=== PATIENT | male | born 1965 | race American Indian/Alaskan Native ===

== ENCOUNTER 2017-12-13 07:51 | Inpatient (IN) | payer OTHER ==
[2017-11-28 10:39] VITALS: BMI 33.6
[2017-12-13 09:10] LABS: BLOOD UREA NITROGEN 19 mg/dl (9-20); CALCIUM 9.1 mg/dL (8.4-10.2); GFR AFRICAN-AMERICAN > 60; GFR NON-AFRICAN AMERICAN > 60
[2017-12-13] MEDS ORDERED: Rocuronium 10 mg/ml (5 ml) ONE ×2 (09:14→11:14)
[2017-12-13] MEDS ORDERED: Propofol 10 mg/ml Inj (20 ML) ONE (09:14)
[2017-12-13] MEDS ORDERED: Succinylcholine 200 mg/10 ml Inj IV ONE (09:15)
[2017-12-13] MEDS ORDERED: Lidocaine 4% (Laryng-O-Jet) Kit MM ONE (09:15)
[2017-12-13] MEDS ORDERED: Phenylephrine 10 mg/ml Inj ONE (09:15)
[2017-12-13] MEDS ORDERED: Bupivacaine 0.5% Inj(30mL) ONE (09:21)
[2017-12-13] MEDS ORDERED: Neostigmine 1:1000 (1 mg/ml) Inj ONE (09:23)
[2017-12-13 09:28] LABS: PARTIAL THROMBOPLASTIN TIME 31.7 Seconds (25.6-37.1)
[2017-12-13] MEDS ORDERED: Lactated Ringer's 1,000 ML IV ONE ×2 (09:46→15:40)
[2017-12-13] MEDS ORDERED: Midazolam 2 MG/2 ML VIAL ONE (09:54)
[2017-12-13] MEDS ORDERED: Ketamine 50 mg/ml Inj (10 ml) ONE (10:11)
--- NOTE | 2017-12-13 10:13 | RAD ---
HISTORY: preop COMPARISON: No prior. TECHNIQUE: Chest PA and lateral FINDINGS: LUNGS: No active pulmonary disease. PLEURA: No significant pleural effusion identified. No pneumothorax apparent. CARDIOVASCULAR: Normal. OSSEOUS STRUCTURES: Mild degenerative changes. VISUALIZED UPPER ABDOMEN: Normal. OTHER FINDINGS: None. IMPRESSION: No active disease.
[2017-12-13] MEDS ORDERED: Dexamethasone 4 mg/1 ml ONE (10:17)
[2017-12-13 10:29] LABS: BASO % 0.5 % (0.0-2.0); EOS # 0.2 K/uL (0.0-0.7); EOS % 1.9 % (0.0-4.0); HEMOGLOBIN 16.1 g/dL (12.0-18.0); LYMPH # 2.4 K/uL (1.0-4.3); LYMPH % 29.3 % (20.0-40.0); MEAN CELL VOLUME 83.7 fl (80.0-94.0); MEAN CORPUSCULAR HEMOGLOBIN 29.7 pg (27.0-31.0); MEAN CORPUSCULAR HGB CONC 35.5 g/dL (33.0-37.0); MEAN PLATELET VOLUME 9.8 fl (7.2-11.7); MONO # 0.6 K/uL (0.0-0.8); MONO % 6.9 % (0.0-10.0); NEUT % 61.4 % (50.0-75.0); NRBC % 0.6 % (0.0-0.0); RBC 5.41 Mil/uL (4.40-5.90); RED CELL DISTRIBUTION WIDTH 14.1 % (11.5-14.5); WHITE BLOOD COUNT 8.1 K/uL (4.8-10.8)
[2017-12-13] MEDS ORDERED: Morphine 1 mg/ml preservative-free Inj(Duramorph) ONE (10:54)
[2017-12-13] MEDS ORDERED: Bupivacaine 0.5% 50 ML IJ ONE (11:05)
[2017-12-13] MEDS ORDERED: EPINEPHrine 1 mg/ml (1:1000) Inj IV ONE (11:05)
[2017-12-13] MEDS ORDERED: Sodium Chloride 0.9% Inj (10mL) IV ONE (11:05)
[2017-12-13] MEDS ORDERED: Morphine 1 mg/ml preservative-free Inj(Duramorph) IV ONE (11:05)
[2017-12-13] MEDS ORDERED: ePHEDrine 50 mg/ml Inj ONE (11:22)
[2017-12-13] MEDS ORDERED: Lactated Ringer's 500 ML IV ONE ×2 (12:40→13:05)
--- NOTE | 2017-12-13 12:58 | CARD ---
APPROVED REPORT EKG Measurement Heart [id number] <Conclusion> Normal sinus rhythm Normal ECG
--- NOTE | 2017-12-13 13:10 | PCM.SURG1 ---
Surgeon's Initial Post Op Note - Surgeon's Notes Surgeon: Sheri Stubbs MD Ductfixing Plumber: Mitch Abrams PA-C, Bridget Mandel Type of Anesthesia: General Endo Pre-Operative Diagnosis: Left Knee Severe Osteoarthritis Operative Findings: see op report Post-Operative Diagnosis: same as pre-op dx Operation Performed: L TKR Specimen/Specimens Removed: Left knee bone and soft tissue Estimated Blood Loss: EBL {In ML}: 75 Date of Surgery/Procedure: 12/13/17 Time of Surgery/Procedure: 11:30
[2017-12-13] MEDS: HYDROmorphone 0.5 mg/0.5 ml ISec IVP PRN ×3 (13:35→14:05)
--- NOTE | 2017-12-13 14:30 | RAD ---
PROCEDURE: Left Knee Radiographs. HISTORY: Pain. COMPARISON: None. FINDINGS: The patient is status post total left knee arthroplasty with prosthetic components seen in good alignment. A small amount expected air and fluid is seen in the suprapatellar bursa. IMPRESSION: Status post total left knee arthroplasty.
--- NOTE | 2017-12-13 16:18 | CP.PCM.HP ---
History of Present Illness - History of Present Illness History of Present Illness: 52 y/o M with PMhx of chronic knee pain, cervical herniated disc and obesity presented to ED c/o intractable L/knee pain for the past months, with severe difficulty walking. Denies LE paresthesias. Patient also c/o hx of cervical disc herniation with chronic radicular pain to R/shoulder and arm with paresthesias to R/UE. Denies vomiting, nausea, changes in urination or stools, fever, headache. Present on Admission - Present on Admission Any Indicators Present on Admission: No Past Patient History - Past Medical History & Family History Past Medical History?: No - Past Social History Smoking Status: Never Smoked - CARDIAC Hx Cardiac Disorders: No - PULMONARY Hx Respiratory Disorders: No - NEUROLOGICAL Hx Neurological Disorder: No - HEENT Hx HEENT Problems: No - RENAL Hx Chronic Kidney Disease: No - ENDOCRINE/METABOLIC Hx Endocrine Disorders: No - HEMATOLOGICAL/ONCOLOGICAL Hx Blood Disorders: No Hx Blood Transfusions: No - INTEGUMENTARY Hx Dermatological Problems: No - MUSCULOSKELETAL/RHEUMATOLOGICAL Hx Musculoskeletal Disorders: Yes Hx Arthritis: Yes (knees) Hx Falls: No Hx Herniated Disk: Yes (C5, C6) Other/Comment: left knee - GASTROINTESTINAL Hx Gastrointestinal Disorders: Yes Hx Gastritis: Yes Other/Comment: HIATAL HERNIA - GENITOURINARY/GYNECOLOGICAL Hx Genitourinary Disorders: No Hx Prostate Problems: Yes (ENLARGE) - PSYCHIATRIC Hx Psychophysiologic Disorder: No Hx Emotional Abuse: No Hx Physical Abuse: No - SURGICAL HISTORY Hx Surgeries: Yes Hx Orthopedic Surgery: Yes (rotator cuff left shoulder,bicep repair) - ANESTHESIA Hx Anesthesia: Yes Hx Anesthesia Reactions: No Hx Malignant Hyperthermia: No Has any member of the family had a problem w/ anesthesia?: No Meds Allergies/Adverse Reactions: Allergies Allergy/AdvReac Type Severity Reaction Status Date / Time No Known Allergies Allergy Verified 12/13/17 08:11 Physical Exam - Constitutional Appears: Non-toxic, No Acute Distress - Eye Exam Eye Exam: EOMI, PERRL - ENT Exam ENT Exam: Mucous Membranes Moist - Respiratory Exam Respiratory Exam: Clear to Auscultation Bilateral, NORMAL BREATHING PATTERN. absent: Rales - Cardiovascular Exam Cardiovascular Exam: REGULAR RHYTHM, +S1, +S2. absent: Gallop - GI/Abdominal Exam GI & Abdominal Exam: Normal Bowel Sounds, Soft. absent: Guarding, Rebound, Tenderness - Extremities Exam Extremities exam: Positive for: tenderness (L/Knee. Limited ROM due to pain). Negative for: calf tenderness - Neurological Exam Neurological exam: Alert, Oriented x3 - Psychiatric Exam Psychiatric exam: Normal Affect, Normal Mood - Skin Skin Exam: Normal Color, Warm Results - Vital Signs Recent Vital Signs: Last Vital Signs Temp 98.9 F 12/13/17 15:50 Pulse 84 12/13/17 15:50 Resp 20 12/13/17 15:50 BP 112/75 12/13/17 15:50 Pulse Ox 98 12/13/17 15:50 - Labs Result Diagrams: 12/14/17 05:15 12/13/17 08:35 Labs: Laboratory Results - last 24 hr 12/13/17 12/13/17 12/13/17 08:35 08:35 08:35 WBC 8.1 RBC 5.41 Hgb 16.1 Hct 45.3 MCV 83.7 MCH 29.7 MCHC 35.5 RDW 14.1 Plt Count 194 MPV 9.8 Neut % (Auto) 61.4 Lymph % (Auto) 29.3 [place] % (Auto) 6.9 Eos % (Auto) 1.9 Baso % (Auto) 0.5 Neut # (Auto) 5.0 Lymph # (Auto) 2.4 [place] # (Auto) 0.6 Eos # (Auto) 0.2 Baso # (Auto) 0.0 PT 11.0 INR 1.0 APTT 31.7 Sodium 143 Potassium 4.1 Chloride 101 Carbon Dioxide 27 Anion Gap 19 BUN 19 Creatinine 1.0 Est GFR ( Amer) > 60 Est GFR (Non-Af Amer) > 60 Random Glucose 101 Calcium 9.1 Assessment & Plan - Assessment and Plan (Free Text) Assessment: Chronic intractable knee pain Failed medical treatment functional decline due to pain Ortho consulted Supportive measures
[2017-12-13] MEDS: oxyCODONE 10 mg ER Tab (oxyCONTIN) PO SCH (20:58)
--- NOTE | 2017-12-13 22:15 | OP ---
PROCEDURE DATE: 12/13/2017 ATTENDING SURGEON: Sheri Stubbs MD MARKETING DEVELOPMENT MANAGER: Mitch Abrams PA-C PREOPERATIVE DIAGNOSIS: :Left knee arthritis. POSTOPERATIVE DIAGNOSIS: Left knee arthritis. PROCEDURE: Left total knee replacement. IMPLANTS SIZE: [employer] 3.5 femur, 3.5 tibial baseplate, 15 mm poly, and 35 mm patella. ANESTHESIA TYPE: General. ESTIMATED BLOOD LOSS: 50 mL. COMPLICATIONS: None. HISTORY: The patient with prolonged history of left knee pain progressively getting worse despite extensive conservative management, which included activity modification, injections, anti-inflammatory modification and physical therapy. X-rays had revealed advanced arthritis. Patient was indicated for total knee replacement due to continued pain and limited mobility. I had a detailed discussion with the patient in the office explaining the nature of the surgery, alternatives of surgery, risks and benefits, rehabilitation protocol and surgical markings. Risks of surgery include but not limited to continued pain, lack of motion, infection, vascular injury, DVT/PE, nerve injury including peroneal nerve dysfunction, reflex sympathetic dystrophy, compartment syndrome, unforeseen medical and/or anesthesia complications, limb loss, and even . The patient expressed an understanding of the risks and possible benefits of the procedure, and is also aware of the alternatives to surgery. PROCEDURE: On the day of the surgery, the patient was admitted to pre-operative holding area. A laterality sheet was completed confirming the correct operative site. The correct surgical knee was marked in the holding area and informed consent was signed from the patient. Once again, I reviewed the risks and benefits of the surgery with the patient in detail. These risks include but are not limited to continued pain, lack of motion, infection, vascular injury, DVT/PE, nerve injury including peroneal nerve dysfunction, reflex sympathetic dystrophy, symptomatic hardware, need for further procedure and surgeries, instability, iatrogenic fractures, compartment syndrome, unforeseen medical and/or anesthesia complications, limb loss, and even . The patient expressed an understanding of the risks and possible benefits of the procedure, also aware of the alternatives to surgery and signed the informed consent. The patient was transported to the operating room and placed in the supine position, general anesthesia was obtained. A padded tourniquet was applied to patient's operative thigh and appropriate prophylactic antibiotics were given. The operative leg was draped and prepped in standard sterile manner. Timeout was completed, confirming patient's left knee to be the correct operative site. Using an Esmarch, the extremity was exsanguinated and tourniquet was inflated to 350 mmHg. The surgical incision markings were made using patella border, tibial tubercle, patella and quadriceps tendon. Using a 10 blade, a midline incision was made. Skin dissection was taken until the prepatellar fascia was identified and the corners of the patellar tendon were marked for proper closure at the end of the procedure. Using a fresh 10 blade, a medial parapatellar arthrotomy was performed. The knee was exposed in the standard manner. The deep MCL was elevated for exposure, medial and lateral menisci were removed, ACL and PCL were also transected. The tibia was subluxed anteriorly. Planned tibial cut was made with power saw, using extra-medullary guide, perpendicular to mechanical axis of the tibia. After the cut was made, the alignment was also checked and was found to be appropriate. Tibial cut surface was measured with trial base plate and it was noted that 3.5 tibial baseplate was provide sufficient coverage without overhang. Tibial component was externally rotated and marked. Next, the knee was placed into 90 degrees of flexion. A drill hole was made within the femoral notch anterior to PCL insertion for placement of intramedullary femoral stephanie. Intramedullary femoral stephanie was inserted within the femoral canal and planned distal femoral cut was made. After the cut, knee was brought into full extension. Spacer blocks were used to check the extension balancing both in full extension and 30 degrees of flexion. It was found that 15 mm trial spacer block allowed full extension with symmetric varus and valgus balancing. Next we proceed with Patella resurfacing. Patella width was found to 28 mm. Using the free-hand technique the arthritic patella surface was resected. Patella was sized using the guide and it was noted that 35 mm Patella dome button would be appropriate for the patient. Next the size of femoral component was determined using the posterior referencing guide. It was noted that a 3.5 femur would be appropriate for this patient without causing any significant notching. A 4 x 1 cutting block was placed and flexion gap balancing was checked. The flexion gap was found to be symmetric to the extension gap. Anterior and posterior condyle, anterior and posterior chamfer cuts were made. Next, appropriate size box cut for femoral component was prepared using the guide. The femoral trial component was impacted onto the distal femur. Appropriate size tibial trial component was also placed on the cut surface of the tibia. Using the drill and punch, keel for tibial implant was prepared. Trial tibial tray was secured onto the tibia using pins. Different size trial polyethylene inserts were secured on to the trial tibial tray to critically assess the following parameters: Full range of motion, extension and flexion gap balancing, mid-flexion stability, anterior and posterior drawer, and patellar tracking. All parameter were found to be satisfactory with 15 mm polyethylene insert. All the trial components were removed. Implants were opened on the back table. Cement was mixed and we proceed with cement fixation of the implants. Tibial tray, femoral component and patellar dome button were secured with cement. Polyethylene insert was secured onto the tibial tray using locking mechanism. The knee was reduced and brought into full extension. Cement was allowed to harden until final component fixation. Knee was taken through the final range of motion for stability testing, and found to be satisfactory. A 60 mL of custom cocktail mixture was injected into posterior capsule, MCL, LCL, quadriceps tendon, and patellar tendon. Wound was copiously irrigated with sterile antibiotic solution using pulse lavage. Arthrotomy was closed using heavy suture and wound was closed in standard manner. Patient was extubated, transferred to stretcher and taken to the recovery room. Post-operative instructions were provided, physical therapy consult was requested along with DVT prophylaxis and appropriate pain medications. During this procedure, I was assisted by Mitch Abrams, who assisted in positioning the patient on the operating room table as well as transferring the patient from the operating room table to the recovery room stretcher. In addition, Mitch Abrams assisted me during the actual operative procedure by positioning, protecting critical neurovascular structures, exposure of the joint, and proper positioning of the implants. The presence of Mitch Abrams as my operative certified surgical assistant was medically necessary to ensure the utmost safety of the patient in the pre, intra-, and post-operative periods. Sheri Stubbs MD [facility]
[2017-12-13] MEDS: Lactated Ringer's 1,000 ML IV SCH (23:31)
[2017-12-14] MEDS: Lactated Ringer's 1,000 ML IV SCH (03:31)
[2017-12-14 06:49] LABS: BASO % 0.2 % (0.0-2.0); EOS % 0.1 % (0.0-4.0); HEMOGLOBIN 13.4 g/dL (12.0-18.0); LYMPH # 2.2 K/uL (1.0-4.3); MEAN CELL VOLUME 83.6 fl (80.0-94.0); MEAN CORPUSCULAR HEMOGLOBIN 29.4 pg (27.0-31.0); MEAN CORPUSCULAR HGB CONC 35.2 g/dL (33.0-37.0); MEAN PLATELET VOLUME 9.9 fl (7.2-11.7); MONO # 1.2 K/uL (0.0-0.8); MONO % 8.2 % (0.0-10.0); NEUT # 11.1 K/uL (1.8-7.0); NEUT % 76.5 % (50.0-75.0); NRBC % 0.3 % (0.0-0.0); RBC 4.55 Mil/uL (4.40-5.90); WHITE BLOOD COUNT 14.6 K/uL (4.8-10.8)
[2017-12-14 07:41] VITALS: RESP 20
[2017-12-14] MEDS: oxyCODONE 10 mg ER Tab (oxyCONTIN) PO SCH ×2 (08:25→20:42)
--- NOTE | 2017-12-14 09:01 | CP.PCM.PN ---
Subjective - Date & Time of Evaluation Date of Evaluation: 12/14/17 Time of Evaluation: 08:15 - Subjective Subjective: 52 yo M s/p LTKR POD#1 Pt seen and examined at bedside, comfortable in bed Pt c/o mild left knee pain, well controlled with pain meds Pt denies SOB, chest pain, N/V/D, numbness/tingling LLE Objective - Vital Signs/Intake and Output Vital Signs (last 24 hours): Temp Pulse Resp BP Pulse Ox 98.4 F 71 20 113/73 96 12/14/17 07:40 12/14/17 07:40 12/14/17 07:40 12/14/17 07:40 12/14/17 07:40 - Medications Medications: Current Medications Acetaminophen (Tylenol 325mg Tab) 325 mg PO Q4 PRN PRN Reason: pain1-3 Aspirin (Aspirin) 325 mg PO BID [facility] Last Admin: 12/14/17 08:24 Dose: 325 mg Celecoxib (Celebrex) 200 mg PO Q12 [facility] Last Admin: 12/14/17 08:25 Dose: 200 mg Docusate Sodium (Colace) 100 mg PO TID [facility] Last Admin: 12/14/17 08:25 Dose: 100 mg Home Med (Alfuzosin Hcl [Uroxatral]) 10 mg PO DAILY [facility] Acetaminophen (Ofirmev) 100 mls @ 400 mls/hr IVPB Q6H [facility] PRN Reason: Protocol Stop: 12/14/17 10:16 Last Admin: 12/14/17 03:31 Dose: 400 mls/hr Lactated Ringer's (Lactated Ringer's) 1,000 mls @ 100 mls/hr IV .Q10H [facility] Last Admin: 12/14/17 03:31 Dose: 100 mls/hr Ketorolac Tromethamine (Toradol) 15 mg IM Q8 [facility] Stop: 12/15/17 23:59 Last Admin: 12/14/17 08:28 Dose: 15 mg Meclizine HCl (Antivert) 25 mg PO DAILY [facility] Last Admin: 12/14/17 08:24 Dose: 25 mg Ondansetron HCl (Zofran Inj) 4 mg IVP Q4 PRN PRN Reason: Nausea/Vomiting Last Admin: 12/13/17 22:19 Dose: 4 mg Oxycodone HCl (Oxycontin Extended Release Tab) 10 mg PO Q12 [facility] Stop: 12/16/17 21:01 Last Admin: 12/14/17 08:25 Dose: 10 mg Oxycodone/Acetaminophen (Percocet 5/325 Mg Tab) 1 tab PO Q4 PRN PRN Reason: pain4-6 Stop: 12/16/17 13:15 Pantoprazole Sodium (Protonix Inj) 40 mg IVP DAILY [facility] Last Admin: 12/14/17 08:26 Dose: 40 mg - Labs Labs: 12/14/17 05:15 12/13/17 08:35 PT 11.0 Seconds (9.8-13.1) 12/13/17 08:35 INR 1.0 (0.9-1.2) 12/13/17 08:35 APTT 31.7 Seconds (25.6-37.1) 12/13/17 08:35 - Constitutional Appears: Well, No Acute Distress - Respiratory Exam Respiratory Exam: Clear to Ausculation Bilateral, NORMAL BREATHING PATTERN - Cardiovascular Exam Cardiovascular Exam: REGULAR RHYTHM, RRR - Extremities Exam Additional comments: LLE: Knee dressing C/D/I Calves soft and nontender b/l N/V intact distslly Distal pulses wnl No foot drop Assessment and Plan - Assessment and Plan (Free Text) Assessment: 52 yo M s/p LTKR POD#1 Plan: Pain Control DVT ppx- aspirin 325mg BID, SCD PT/OT - WBAT LLE Incentive Spirometer F/U labs- h/h stable Continue current management
--- NOTE | 2017-12-14 12:38 | CP.PCM.PN ---
Subjective - Date & Time of Evaluation Date of Evaluation: 12/14/17 Time of Evaluation: 10:00 - Subjective Subjective: Doing better, stable, no acute events overnight, alert and aware. Pain controlled. Denies calf pain, CP, SOB, headache, palpitations, nausea or vomiting. Afebrile Objective - Vital Signs/Intake and Output Vital Signs (last 24 hours): Temp Pulse Resp BP Pulse Ox 98.4 F 59 L 20 113/73 96 12/14/17 07:40 12/14/17 09:55 12/14/17 07:40 12/14/17 07:40 12/14/17 07:40 - Medications Medications: Current Medications Acetaminophen (Tylenol 325mg Tab) 325 mg PO Q4 PRN PRN Reason: pain1-3 Aspirin (Aspirin) 325 mg PO BID [facility] Last Admin: 12/14/17 08:24 Dose: 325 mg Celecoxib (Celebrex) 200 mg PO Q12 [facility] Last Admin: 12/14/17 08:25 Dose: 200 mg Docusate Sodium (Colace) 100 mg PO TID [facility] Last Admin: 12/14/17 08:25 Dose: 100 mg Home Med (Alfuzosin Hcl [Uroxatral]) 10 mg PO DAILY [facility] Lactated Ringer's (Lactated Ringer's) 1,000 mls @ 100 mls/hr IV .Q10H [facility] Last Admin: 12/14/17 03:31 Dose: 100 mls/hr Ketorolac Tromethamine (Toradol) 15 mg IM Q8 [facility] Stop: 12/15/17 23:59 Last Admin: 12/14/17 08:28 Dose: 15 mg Meclizine HCl (Antivert) 25 mg PO DAILY [facility] Last Admin: 12/14/17 08:24 Dose: 25 mg Ondansetron HCl (Zofran Inj) 4 mg IVP Q4 PRN PRN Reason: Nausea/Vomiting Last Admin: 12/13/17 22:19 Dose: 4 mg Oxycodone HCl (Oxycontin Extended Release Tab) 10 mg PO Q12 [facility] Stop: 12/16/17 21:01 Last Admin: 12/14/17 08:25 Dose: 10 mg Oxycodone/Acetaminophen (Percocet 5/325 Mg Tab) 1 tab PO Q4 PRN PRN Reason: pain4-6 Stop: 12/16/17 13:15 Pantoprazole Sodium (Protonix Inj) 40 mg IVP DAILY [facility] Last Admin: 12/14/17 08:26 Dose: 40 mg - Labs Labs: 12/14/17 05:15 12/13/17 08:35 PT 11.0 Seconds (9.8-13.1) 12/13/17 08:35 INR 1.0 (0.9-1.2) 12/13/17 08:35 APTT 31.7 Seconds (25.6-37.1) 12/13/17 08:35 - Constitutional Appears: Non-toxic, No Acute Distress - Eye Exam Eye Exam: PERRL - ENT Exam ENT Exam: Mucous Membranes Moist - Respiratory Exam Respiratory Exam: Clear to Ausculation Bilateral, NORMAL BREATHING PATTERN. absent: Decreased Breath Sounds, Rales, Wheezes - Cardiovascular Exam Cardiovascular Exam: REGULAR RHYTHM, +S1, +S2. absent: Gallop - GI/Abdominal Exam GI & Abdominal Exam: Soft, Normal Bowel Sounds. absent: Distended, Guarding, Tenderness, Rebound - Extremities Exam Extremities Exam: absent: Calf Tenderness Additional comments: Dressing clean and dry. No foot drop no signs of neurovascular compromise - Neurological Exam Neurological Exam: Alert, Awake, Oriented x3. absent: Motor Sensory Deficit - Psychiatric Exam Psychiatric exam: Normal Affect, Normal Mood - Skin Skin Exam: Normal Color, Warm Assessment and Plan - Assessment and Plan (Free Text) Assessment: S/P L/TKR Doing better XRay post op as expected s/p TKR Xray preop report: B/L degenerative disc disease worse in the left with effusion C/w pain control C/W PT DC planning rehab
[2017-12-15] MEDS: Oxycodone/Acetaminophen 5/325 mg Tab PO PRN ×2 (01:39→05:34)
[2017-12-15 06:45] LABS: BLOOD UREA NITROGEN 18 mg/dl (9-20); CALCIUM 8.4 mg/dL (8.4-10.2); GFR AFRICAN-AMERICAN > 60; GFR NON-AFRICAN AMERICAN > 60
[2017-12-15 07:13] LABS: BASO # 0.1 K/uL (0.0-0.2); BASO % 0.7 % (0.0-2.0); EOS # 0.2 K/uL (0.0-0.7); EOS % 1.5 % (0.0-4.0); HEMOGLOBIN 12.8 g/dL (12.0-18.0); LYMPH # 2.7 K/uL (1.0-4.3); LYMPH % 25.2 % (20.0-40.0); MEAN CELL VOLUME 84.3 fl (80.0-94.0); MEAN CORPUSCULAR HEMOGLOBIN 29.7 pg (27.0-31.0); MEAN CORPUSCULAR HGB CONC 35.2 g/dL (33.0-37.0); MEAN PLATELET VOLUME 9.8 fl (7.2-11.7); MONO # 1.1 K/uL (0.0-0.8); MONO % 10.7 % (0.0-10.0); NEUT # 6.6 K/uL (1.8-7.0); NEUT % 61.9 % (50.0-75.0); NRBC % 0.3 % (0.0-0.0); RBC 4.32 Mil/uL (4.40-5.90); RED CELL DISTRIBUTION WIDTH 13.6 % (11.5-14.5); WHITE BLOOD COUNT 10.6 K/uL (4.8-10.8)
[2017-12-15 07:49] VITALS: BP 106/65; TEMP 98.3
[2017-12-15] MEDS: oxyCODONE 10 mg ER Tab (oxyCONTIN) PO SCH (10:17)
[2017-12-15 11:03] VITALS: PULSE 90; O2SAT 95
--- NOTE | 2017-12-15 11:42 | CP.PCM.PN ---
Subjective - Date & Time of Evaluation Date of Evaluation: 12/15/17 Time of Evaluation: 10:30 - Subjective Subjective: Stable. Doing better on PT this morning. Pain is moderately controlled with meds. Tolerating PO. Denies CP, palpitations, calf pain, SOB. Afebrile. Objective - Vital Signs/Intake and Output Vital Signs (last 24 hours): Temp Pulse Resp BP Pulse Ox 98.3 F 90 20 106/65 95 12/15/17 07:48 12/15/17 09:10 12/15/17 07:48 12/15/17 07:48 12/15/17 09:10 - Medications Medications: Current Medications Acetaminophen (Tylenol 325mg Tab) 325 mg PO Q4 PRN PRN Reason: pain1-3 Aspirin (Aspirin) 325 mg PO BID [facility] Last Admin: 12/15/17 10:25 Dose: 325 mg Celecoxib (Celebrex) 200 mg PO Q12 [facility] Last Admin: 12/15/17 10:18 Dose: 200 mg Docusate Sodium (Colace) 100 mg PO TID [facility] Last Admin: 12/15/17 10:19 Dose: 100 mg Home Med (Alfuzosin Hcl [Uroxatral]) 10 mg PO DAILY [facility] Lactated Ringer's (Lactated Ringer's) 1,000 mls @ 100 mls/hr IV .Q10H [facility] Last Admin: 12/14/17 03:31 Dose: 100 mls/hr Ketorolac Tromethamine (Toradol) 15 mg IM Q8 [facility] Stop: 12/15/17 23:59 Last Admin: 12/15/17 10:26 Dose: 15 mg Meclizine HCl (Antivert) 25 mg PO DAILY [facility] Last Admin: 12/15/17 10:19 Dose: 25 mg Ondansetron HCl (Zofran Inj) 4 mg IVP Q4 PRN PRN Reason: Nausea/Vomiting Last Admin: 12/13/17 22:19 Dose: 4 mg Oxycodone HCl (Oxycontin Extended Release Tab) 10 mg PO Q12 [facility] Stop: 12/16/17 21:01 Last Admin: 12/15/17 10:17 Dose: 10 mg Oxycodone/Acetaminophen (Percocet 5/325 Mg Tab) 1 tab PO Q4 PRN PRN Reason: pain4-6 Stop: 12/16/17 13:15 Last Admin: 12/15/17 05:34 Dose: 1 tab Pantoprazole Sodium (Protonix Inj) 40 mg IVP DAILY [facility] Last Admin: 12/15/17 10:23 Dose: 40 mg - Labs Labs: 12/15/17 05:25 12/15/17 05:25 PT 11.0 Seconds (9.8-13.1) 12/13/17 08:35 INR 1.0 (0.9-1.2) 12/13/17 08:35 APTT 31.7 Seconds (25.6-37.1) 12/13/17 08:35 - Constitutional Appears: Non-toxic, No Acute Distress - Eye Exam Eye Exam: PERRL - ENT Exam ENT Exam: Mucous Membranes Moist - Respiratory Exam Respiratory Exam: Clear to Ausculation Bilateral, NORMAL BREATHING PATTERN. absent: Decreased Breath Sounds, Rales, Respiratory Distress - Cardiovascular Exam Cardiovascular Exam: REGULAR RHYTHM, +S1, +S2. absent: Gallop - GI/Abdominal Exam GI & Abdominal Exam: Soft, Normal Bowel Sounds. absent: Guarding, Tenderness, Rebound - Extremities Exam Additional comments: No signs of neurvascular compromise on LLE. Leg covered with bo wrap. - Neurological Exam Neurological Exam: Alert, Awake, Oriented x3 - Psychiatric Exam Psychiatric exam: Normal Affect, Normal Mood - Skin Skin Exam: Normal Color, Warm Assessment and Plan - Assessment and Plan (Free Text) Assessment: S/P LTKR POD2 doing better. Encouraged mobilization and PT Patient would benefit from TCU Needs to safely be able to climb stairs before DC home. C/W Pain control and supportive measures DVT prophylaxis ASA 325 mg BID
--- NOTE | 2017-12-16 10:13 | CP.PCM.DIS ---
Provider - Provider Date of Admission: 12/14/17 18:07 Attending physician: Melvin Sexton MD Primary care physician: NO FAMILY PROVIDER Consults: Orthopedics Time Spent in preparation of Discharge (in minutes): 30 Diagnosis - Discharge Diagnosis (1) Left knee DJD Status: Chronic Comment: s/p LTKR (2) Intractable pain Status: Chronic Hospital Course - Lab Results Lab Results: Most Recent Lab Values WBC 10.6 K/uL (4.8-10.8) 12/15/17 05:25 RBC 4.32 Mil/uL (4.40-5.90) L 12/15/17 05:25 Hgb 12.8 g/dL (12.0-18.0) 12/15/17 05:25 Hct 36.4 % (35.0-51.0) 12/15/17 05:25 MCV 84.3 fl (80.0-94.0) 12/15/17 05:25 MCH 29.7 pg (27.0-31.0) 12/15/17 05:25 MCHC 35.2 g/dL (33.0-37.0) 12/15/17 05:25 RDW 13.6 % (11.5-14.5) 12/15/17 05:25 Plt Count 156 K/uL (130-400) 12/15/17 05:25 MPV 9.8 fl (7.2-11.7) 12/15/17 05:25 Neut % (Auto) 61.9 % (50.0-75.0) 12/15/17 05:25 Lymph % (Auto) 25.2 % (20.0-40.0) 12/15/17 05:25 [place] % (Auto) 10.7 % (0.0-10.0) H 12/15/17 05:25 Eos % (Auto) 1.5 % (0.0-4.0) 12/15/17 05:25 Baso % (Auto) 0.7 % (0.0-2.0) 12/15/17 05:25 Neut # (Auto) 6.6 K/uL (1.8-7.0) 12/15/17 05:25 Lymph # (Auto) 2.7 K/uL (1.0-4.3) 12/15/17 05:25 [place] # (Auto) 1.1 K/uL (0.0-0.8) H 12/15/17 05:25 Eos # (Auto) 0.2 K/uL (0.0-0.7) 12/15/17 05:25 Baso # (Auto) 0.1 K/uL (0.0-0.2) 12/15/17 05:25 PT 11.0 Seconds (9.8-13.1) 12/13/17 08:35 INR 1.0 (0.9-1.2) 12/13/17 08:35 APTT 31.7 Seconds (25.6-37.1) 12/13/17 08:35 Sodium 140 mmol/l (132-148) 12/15/17 05:25 Potassium 4.0 MMOL/L (3.6-5.0) 12/15/17 05:25 Chloride 99 mmol/L (98-107) 12/15/17 05:25 Carbon Dioxide 29 mmol/L (22-30) 12/15/17 05:25 Anion Gap 16 (10-20) 12/15/17 05:25 BUN 18 mg/dl (9-20) 12/15/17 05:25 Creatinine 1.0 mg/dl (0.8-1.5) 12/15/17 05:25 Est GFR ( Amer) > 60 12/15/17 05:25 Est GFR (Non-Af Amer) > 60 12/15/17 05:25 Random Glucose 96 mg/dL (75-110) 12/15/17 05:25 Calcium 8.4 mg/dL (8.4-10.2) 12/15/17 05:25 - Hospital Course Hospital Course: 52 y/o M admitted for intractable L/knee pain and functional limitations due to pain was admitted to hosp and underwent LTKR by Orthopedic team. Sx was without complication and patient stayed 2 nights in the hosp recovering and undergoing PT services. Patient remained stable with stable VS and controlled pain. He was able to progress on PT but will need more PT due to steps at home and safety after DC. Patient is accepted this afternoon to [facility] and was DC after cleared by Orthopedic and PMD. Discharge Plan - Follow Up Plan Condition: GOOD Disposition: REHAB FACILITY/REHAB UNIT Instructions: Total Knee Replacement (DC) Additional Instructions: Follow up with Dr. Stubbs 7-10 days. Weight bearing as tolerated Remove Aquacel dressing on post-op day #3 (S/P L TKR on 12/14) Referrals: Sheri Stubbs MD [Staff Provider] - FAMILY PROVIDER,NO [Primary Care Provider] -
== END 2017-12-15 17:40 | DRG 470 ==
LOC: H.OPSURG 07:51 → H.MEDSURG1 13:59 → OBSVTOIN 12-14 18:07
PROVIDERS: ADMIT Family Medicine; ATTEND Family Medicine
PROC: 0SRD0J9 Replacement of Left Knee Joint with Synthetic Substitute, Cemented, Open Approach (ICD-10-PCS; principal; 2017-12-13 10:20)
DX: M17.12 Unilateral primary osteoarthritis, left knee (principal); G89.29 Other chronic pain; K44.9 Diaphragmatic hernia without obstruction or gangrene; Z79.82 Long term (current) use of aspirin

== ENCOUNTER 2017-12-26 16:33 | Inpatient (IN) | payer OTHER ==
[2017-12-26 16:33] VITALS: BMI 33.6
[2017-12-26] MEDS ORDERED: DiphenhydrAMINE 50 mg/ml Inj IVP STA (19:12)
[2017-12-26] MEDS ORDERED: Morphine 4 MG/ML VIAL IVP STA (19:12)
[2017-12-26] MEDS ORDERED: Piperacillin/Tazobact 3.375 GM in Sodium Chloride 0.9% 100 ML IV STA (19:19)
[2017-12-26] MEDS ORDERED: Morphine 4 MG/ML VIAL ONE (19:23)
[2017-12-26] MEDS ORDERED: DiphenhydrAMINE 50 mg/ml Inj ONE (19:24)
[2017-12-26 20:09] LABS: VENOUS BLOOD GAS BASE EXCESS 8.4 mmol/L (0.0-2.0); VENOUS BLOOD GAS PCO2 55 mmHg (40-60); VENOUS BLOOD GAS PO2 24 mm/Hg (30-55); VENOUS BLOOD PH 7.41 (7.32-7.43)
[2017-12-26] MEDS ORDERED: Piperacillin/Tazobact 3.375 gm Inj IVPB ONE (20:10)
[2017-12-26 20:16] LABS: BASO # 0.1 K/uL (0.0-0.2); BASO % 0.4 % (0.0-2.0); EOS # 0.4 K/uL (0.0-0.7); HEMOGLOBIN 14.1 g/dL (12.0-18.0); LYMPH # 2.5 K/uL (1.0-4.3); MEAN CELL VOLUME 81.9 fl (80.0-94.0); MEAN CORPUSCULAR HEMOGLOBIN 28.8 pg (27.0-31.0); MEAN CORPUSCULAR HGB CONC 35.2 g/dL (33.0-37.0); MEAN PLATELET VOLUME 8.8 fl (7.2-11.7); MONO # 0.7 K/uL (0.0-0.8); MONO % 5.9 % (0.0-10.0); NEUT # 8.9 K/uL (1.8-7.0); NEUT % 70.7 % (50.0-75.0); NRBC % 0.2 % (0.0-0.0); RBC 4.9 Mil/uL (4.40-5.90); RED CELL DISTRIBUTION WIDTH 13.7 % (11.5-14.5); WHITE BLOOD COUNT 12.6 K/uL (4.8-10.8)
[2017-12-26 20:21] LABS: ALB/GLOB RATIO 1.1 (1.0-2.1); ALBUMIN 3.9 g/dL (3.5-5.0); ALT/SGPT 43 U/L (21-72); AST/SGOT 27 U/L (17-59); BLOOD UREA NITROGEN 20 mg/dl (9-20); CALCIUM 9.4 mg/dL (8.4-10.2); GFR AFRICAN-AMERICAN > 60; GFR NON-AFRICAN AMERICAN > 60
[2017-12-26 20:29] LABS: INR 1.2 (0.9-1.2); PARTIAL THROMBOPLASTIN TIME 30.6 Seconds (25.6-37.1); PROTHROMBIN TIME 12.8 Seconds (9.8-13.1)
--- NOTE | 2017-12-26 21:01 | ED PDOC ---
Lower Extremity Pain/Injury Time Seen by Provider: 12/26/17 18:39 Chief Complaint (Nursing): Lower Extremity Problem/Injury Chief Complaint (Provider): Left knee pain and swelling History Per: Patient History/Exam Limitations: no limitations Onset/Duration Of Symptoms: Days (x12) Current Symptoms Are (Timing): Still Present Severity: Severe Additional Complaint(s): Cesar Adrian is a 52 year old male who presents to the emergency department for severe left knee pain and swelling s/p left knee replacement on December [address] Stubbs in [facility]. He reports since procedure he's been having increasing pain, swelling, redness and areas of bruising to his left knee and leg. Patient has been to [facility] for rehab and was discharge on . Patient saw Dr. Stubbs in his office today who advised to come to the ER for further evaluation. Patient reports subjective fever and chills and states pain was so severe he took Tylenol with codeine and celebrex. However, he developed a rash so he stopped taking both medications. He denies any purulent discharge. No further medical complaints. PMD: Sheri Mendoza Dr. admitted him for his procedure earlier this month. Past Medical History Reviewed: Historical Data, Nursing Documentation, Vital Signs Vital Signs: Last Vital Signs Temp 98.3 F 12/26/17 17:20 Pulse 89 12/26/17 17:20 Resp 18 12/26/17 17:20 BP 135/85 12/26/17 17:20 Pulse Ox 99 12/26/17 17:20 - Medical History PMH: Arthritis (knees), Gastritis Denies: Chronic Kidney Disease - Surgical History Surgical History: Endoscopy Other surgeries: left shoulder, left knee replacement - Family History Family History: States: Unknown Family Hx - Social History Current smoker - smoking cessation education provided: No Alcohol: None Drugs: Denies - Home Medications Home Medications: Ambulatory Orders Medication Instructions Recorded Amoxicillin/Clavulanate [Augmentin 1 tab PO Q12 #14 tab 12/29/17 875 MG-125 MG] Methylprednisolone [Medrol Dose 4 mg PO UPON ADM #21 mg 12/29/17 Pack (21 tabs)] - Allergies Allergies/Adverse Reactions: Allergies Allergy/AdvReac Type Severity Reaction Status Date / Time No Known Allergies Allergy Verified 12/13/17 08:11 Review of Systems Constitutional: Positive for: Fever, Chills Musculoskeletal: Positive for: Leg Pain (left knee pain, swelling and redness) Physical Exam - Reviewed Nursing Documentation Reviewed: Yes Vital Signs Reviewed: Yes - Physical Exam Appears: Positive for: Non-toxic, In Acute Distress (moderate painful) Skin: Positive for: Warm, Dry Eye Exam: Positive for: EOMI, PERRL ENT: Positive for: Pharynx Is (clear) Neck: Positive for: Painless ROM, Supple Cardiovascular/Chest: Positive for: Regular Rate, Rhythm. Negative for: Murmur Respiratory: Positive for: Normal Breath Sounds. Negative for: Respiratory Distress Gastrointestinal/Abdominal: Positive for: Soft. Negative for: Tenderness Back: Positive for: Normal Inspection. Negative for: Decreased ROM Extremity: Positive for: Swelling, Other (Left knee: vertical surgical wound on anterior knee with no dehiscence, erythema and induration diffused and extending to anterior knee down to lower leg. Pitting edema to foot, ankle and lower leg. Areas of ecchymosis to toes, ankle and anterior tibia. Early skin excoriation to medial knee. ). Negative for: Normal ROM (Left knee limited flexion secondary to pain and edema.) Lymphatic: Negative for: Adenopathy Neurologic/Psych: Positive for: Alert. Negative for: Motor/Sensory Deficits - Laboratory Results Result Diagrams: 12/28/17 05:50 12/28/17 05:50 - ECG O2 Sat by Pulse Oximetry: 99 (RA) Pulse Ox Interpretation: Normal Medical Decision Making Medical Decision Making: Initial Impression: left knee and lower leg cellulitis. Left knee pain and edema s/p knee surgery Initial Plan: --EKG --Infectious disease consult --Orthopedic consult --Chest portable [RAD] --Benadryl 25 mg IVP --Morphine 4 mg IVP --Vancomycin 1 gm IV daily --Zosyn 4.5gm IVPB --Blood culture --Urine culture --Urinalysis --Reevaluation -Discussed case with Dr. Sexton for hospitalization. Patient required hospitalization for IV antibiotics. -Discussed Dr. Brownlee for infectious disease. Scribe Attestation: Documented by Zeeshan Shane, acting as a scribe for Ethel Trujillo MD Provider Scribe Attestation: All medical record entries made by the Scribe were at my direction and personally dictated by me. I have reviewed the chart and agree that the record accurately reflects my personal performance of the history, physical exam, medical decision making, and the department course for this patient. I have also personally directed, reviewed, and agree with the discharge instructions and disposition. Disposition - Clinical Impression Clinical Impression: Cellulitis and abscess of left leg - Disposition Disposition Time: 19:00 Condition: FAIR - Pt Status Changed To: Hospital Disposition Of: Inpatient - Admit Certification Admit to Inpatient:: After my assessment, the patient will require hospitalization for at least two midnights. This is because of the severity of symptoms shown, intensity of services needed, and/or the medical risk in this patient being treated as an outpatient. - POA Present On Arrival: Surgical Site Infection
[2017-12-26 23:02] LABS: URINE BILIRUBIN NEGATIVE (NEGATIVE); URINE BLOOD NEGATIVE (NEGATIVE); URINE CLARITY CLEAR (Clear); URINE COLOR YELLOW (YELLOW); URINE GLUCOSE (UA) NEG (Normal); URINE LEUKOCYTE ESTERASE NEG Leu/uL (Negative); URINE PROTEIN NEGATIVE (NEGATIVE)
[2017-12-27] MEDS: Piperacillin/Tazobact 3.375 GM in Sodium Chloride 0.9% 100 ML IVPB SCH ×3 (00:07→16:57)
--- NOTE | 2017-12-27 09:09 | RAD ---
HISTORY: admission COMPARISON: Chest radiograph dated 12/13/2017 FINDINGS: LUNGS: No active pulmonary disease. PLEURA: No significant pleural effusion identified, no pneumothorax apparent. CARDIOVASCULAR: Normal. OSSEOUS STRUCTURES: Unchanged. VISUALIZED UPPER ABDOMEN: Normal. OTHER FINDINGS: None. IMPRESSION: No active disease.
[2017-12-27 10:03] LABS: HEMOGLOBIN 13.7 g/dL (12.0-18.0); MEAN CELL VOLUME 83.4 fl (80.0-94.0); MEAN CORPUSCULAR HEMOGLOBIN 29.1 pg (27.0-31.0); MEAN CORPUSCULAR HGB CONC 34.9 g/dL (33.0-37.0); RBC 4.72 Mil/uL (4.40-5.90); RED CELL DISTRIBUTION WIDTH 13.7 % (11.5-14.5); WHITE BLOOD COUNT 9.4 K/uL (4.8-10.8)
--- NOTE | 2017-12-27 10:46 | CP.PCM.CON ---
History of Present Illness - History of Present Illness History of Present Illness: 52 year old male who presents to the emergency department for severe left knee pain and swelling s/p left knee replacement on December [address] Stubbs in this [facility]. He reports since procedure he's been having increasing pain, swelling , redness and areas of bruising to his left knee and leg. Patient has been to [facility] for rehab and was discharge on . Patient saw Dr. Stubbs in his office today who advised to come to the ER for further evaluation. Patient reports subjective fever and chills and states pain was so severe he took Tylenol with codeine and celebrex. However, he developed a rash so he stopped taking both medications. He denies any purulent discharge. No further medical complaints. PMD: Sheri Mendoza - Medical History PMH: Arthritis (knees), Gastritis Denies: Chronic Kidney Disease - Surgical History Surgical History: Endoscopy Other surgeries: left shoulder, left knee replacement Review of Systems - Review of Systems All systems: reviewed and no additional remarkable complaints except - Constitutional Constitutional: As Per HPI - EENT Eyes: absent: As Per HPI, Blind Spots, Blurred Vision, Change in Vision, Decreased Night Vision, Diplopia, Discharge, Dry Eye, Exophthalmos, Floaters, Irritation, Itchy Eyes, Loss of Peripheral Vision, Pain, Photophobia, Requires Corrective Lenses, Sees Flashes, Spots in Vision, Tunnel Vision, Other Visual Disturbances, Loss of Vision, Other Ears: absent: As Per HPI, Decreased Hearing, Ear Discharge, Ear Pain, Tinnitus, Abnormal Hearing, Disequilibrium, Dizziness, Other Nose/Mouth/Throat: absent: As Per HPI, Epistaxis, Nasal Congestion, Nasal Discharge, Nasal Obstruction, Nasal Trauma, Nose Pain, Post Nasal Drip, Sinus Pain, Sinus Pressure, Bleeding Gums, Change in Voice, Dental Pain, Dry Mouth, Dysphagia, Halitosis, Hoarsness, Lip Swelling, Mouth Lesions, Mouth Pain, Odynophagia, Sore Throat, Throat Swelling, Tongue Swelling, Facial Pain, Neck Pain, Neck Mass, Other - Cardiovascular Cardiovascular: absent: As Per HPI, Acrocyanosis, Chest Pain, Chest Pain at Rest , Chest Pain with Activity, Claudication, Diaphoresis, Dyspnea, Dyspnea on Exertion, Edema, Irregular Heart Rhythm, Pain Radiating to Arm/Neck/Jaw, Leg Edema, Leg Ulcers, Lightheadedness, Orthopnea, Palpitations, Paroxysmal Nocturnal Dyspnea, Pedal Edema, Radiating Pain, Rapid Heart Rate, Slow Heart Rate, Syncope, Other - Respiratory Respiratory: absent: As Per HPI, Cough, Dyspnea, Hemoptysis, Dyspnea on Exertion , Wheezing, Snoring, Stridor, Pain on Inspiration, Chest Congestion, Excessive Mucous Production, Change in Mucous Color, Pain with Coughing, Other - Gastrointestinal Gastrointestinal: absent: As Per HPI, Abdominal Pain, Belching, Bloating, Change in Bowel Habits, Change in Stool Character, Coffee Ground Emesis, Constipation, Cramping, Diarrhea, Dyspepsia, Dysphagia, Early Satiety, Excessive Flatus, Fecal Incontinence, Heartburn, Hematemesis, Hematochezia, Loose Stools, Melena, Nausea, Odynophagia, Temesmus, Vomiting, Other - Genitourinary Genitourinary: absent: As Per HPI, Change in Urinary Stream, Difficulty Urinating, Dysuria, Flank Pain, Hematuria, Pyuria, Nocturia, Urinary Incontinence, Urinary Frequency, Urinary Hesitance, Urinary Urgency, Voiding Freq/Small Amts, Freq UTI, Hx Renal/Bladder Calculi, Hx /Renal Surgery, Bladder Distension, Other - Musculoskeletal Musculoskeletal: As Per HPI - Integumentary Integumentary: As Per HPI - Neurological Neurological: absent: As Per HPI, Abnormal Gait, Abnormal Hearing, Abnormal Movements, Abnormal Speech, Behavioral Changes, Burning Sensations, Confusion, Convulsions, Disequilibrium, Dizziness, Numbness, Focal Weakness, Frequent Falls , Headaches, Lack of Coordination, Loss of Vision, Memory Loss, Paresthesias, Radicular Pain, Restless Legs, Sensory Deficit, Syncope, Tingling, Tremor, Vertigo, Weakness, Other Visual Disturbances, Other - Psychiatric Psychiatric: absent: As Per HPI, Abnormal Sleep Pattern, Anhedonia, Anxiety, Auditory Hallucinations, Behavioral Changes, Change in Appetite, Change in Libido, Confusion, Depression, Difficulty Concentrating, Hallucinations, Homicidal Ideation, Hopelessness, Irritability, Memory Loss, Mood Swings, Panic Attacks, Paranoia, Suicidal Ideation, Visual Hallucinations, Tactile Hallucinations, Other - Endocrine Endocrine: absent: As Per HPI, Change in Body Appearance, Change in Libido, Cold Intolorance, Deepening of Voice, Excessive Sweating, Fatigue, Flushing, Heat Intolorance, Increase in Ring/Shoe/Hat Size, Palpitations, Polydipsia, Polyphagia, Polyuria, Other - Hematologic/Lymphatic Hematologic: absent: As Per HPI, Easy Bleeding, Easy Bruising, Lymphadenopathy, Other Past Patient History - Past Medical History & Family History Past Medical History?: Yes - Past Social History Smoking Status: Never Smoked - CARDIAC Hx Cardiac Disorders: No - PULMONARY Hx Respiratory Disorders: No - NEUROLOGICAL Hx Neurological Disorder: No - HEENT Hx HEENT Problems: No - RENAL Hx Chronic Kidney Disease: No - ENDOCRINE/METABOLIC Hx Endocrine Disorders: No - HEMATOLOGICAL/ONCOLOGICAL Hx Blood Disorders: No Hx Blood Transfusions: No - INTEGUMENTARY Hx Dermatological Problems: No - MUSCULOSKELETAL/RHEUMATOLOGICAL Hx Musculoskeletal Disorders: Yes Hx Arthritis: Yes (knees) Hx Falls: Yes - GASTROINTESTINAL Hx Gastrointestinal Disorders: Yes Hx Gastritis: Yes - GENITOURINARY/GYNECOLOGICAL Hx Genitourinary Disorders: Yes Hx Prostate Problems: Yes (ENLARGE) - PSYCHIATRIC Hx Psychophysiologic Disorder: No Hx Emotional Abuse: No Hx Physical Abuse: No Hx Substance Use: No - SURGICAL HISTORY Hx Surgeries: Yes Hx Orthopedic Surgery: Yes (rotator cuff left shoulder,bicep repair) Other/Comment: Left knee replacement - ANESTHESIA Hx Anesthesia: Yes Hx Anesthesia Reactions: No Hx Malignant Hyperthermia: No Meds Allergies/Adverse Reactions: Allergies Allergy/AdvReac Type Severity Reaction Status Date / Time No Known Allergies Allergy Verified 12/13/17 08:11 - Medications Medications: Current Medications Vancomycin HCl 1 gm/ Sodium (Chloride) 250 mls @ 166.667 mls/hr IVPB Q12 [facility] PRN Reason: Protocol Last Admin: 12/27/17 08:49 Dose: 166.667 mls/hr Piperacillin Sod/Tazobactam (Sod 3.375 gm/ Sodium Chloride) 100 mls @ 100 mls/ hr IVPB Q8 [facility] PRN Reason: Protocol Last Admin: 12/27/17 08:54 Dose: 100 mls/hr Ibuprofen (Motrin Tab) 800 mg PO Q8 [facility] Last Admin: 12/27/17 08:45 Dose: 800 mg Morphine Sulfate (Morphine) 2 mg IVP Q6 PRN PRN Reason: Pain, severe (8-10) Pantoprazole Sodium (Protonix Inj) 40 mg IVP DAILY [facility] Last Admin: 12/27/17 08:46 Dose: 40 mg Physical Exam - Constitutional Appears: Non-toxic, Chronically Ill - Head Exam Head Exam: NORMOCEPHALIC - Eye Exam Eye Exam: PERRL. absent: Scleral icterus - ENT Exam ENT Exam: Mucous Membranes Dry, Normal External Ear Exam, Normal Oropharynx - Neck Exam Neck exam: Negative for: Lymphadenopathy - Respiratory Exam Respiratory Exam: Decreased Breath Sounds, Clear to Auscultation Bilateral - Cardiovascular Exam Cardiovascular Exam: REGULAR RHYTHM, +S1, +S2 - GI/Abdominal Exam GI & Abdominal Exam: Diminished Bowel Sounds, Soft. absent: Tenderness - Rectal Exam Rectal Exam: Deferred - Exam Exam: NORMAL INSPECTION - Extremities Exam Extremities exam: Positive for: joint swelling, pedal edema, tenderness, pedal pulses present. Negative for: calf tenderness, normal inspection Additional comments: swelling of entire left leg to ankle with redness warmth and decreased rom - Back Exam Back exam: absent: CVA tenderness (L), CVA tenderness (R) - Neurological Exam Neurological exam: Alert, CN II-XII Intact, Oriented x3, Reflexes Normal - Psychiatric Exam Psychiatric exam: Normal Mood - Skin Skin Exam: Dry Results - Vital Signs Recent Vital Signs: Last Vital Signs Temp 98.2 F 12/27/17 07:47 Pulse 76 12/27/17 07:47 Resp 19 12/27/17 07:47 BP 112/67 12/27/17 07:47 Pulse Ox 96 12/27/17 07:47 - Labs Result Diagrams: 12/27/17 09:40 12/26/17 20:05 Labs: Laboratory Results - last 24 hr 12/26/17 12/26/17 12/26/17 20:04 20:05 20:05 WBC 12.6 H RBC 4.90 Hgb 14.1 Hct 40.1 MCV 81.9 D MCH 28.8 MCHC 35.2 RDW 13.7 Plt Count 337 D MPV 8.8 Neut % (Auto) 70.7 Lymph % (Auto) 20.0 [place] % (Auto) 5.9 Eos % (Auto) 3.0 Baso % (Auto) 0.4 Neut # (Auto) 8.9 H Lymph # (Auto) 2.5 [place] # (Auto) 0.7 Eos # (Auto) 0.4 Baso # (Auto) 0.1 PT INR APTT pO2 24 L VBG pH 7.41 VBG pCO2 55 VBG HCO3 30.0 VBG Total CO2 36.6 H VBG O2 Sat (Calc) 48.3 VBG Base Excess 8.4 H VBG Potassium 3.7 Sodium 139.0 142 Chloride 105.0 101 Glucose 117 H Lactate 1.2 FiO2 21.0 Potassium 4.0 Carbon Dioxide 29 Anion Gap 16 BUN 20 Creatinine 0.9 Est GFR ( Amer) > 60 Est GFR (Non-Af Amer) > 60 Random Glucose 117 H Calcium 9.4 Total Bilirubin 1.0 AST 27 ALT 43 Alkaline Phosphatase 58 Total Protein 7.3 Albumin 3.9 Globulin 3.4 Albumin/Globulin Ratio 1.1 Venous Blood Potassium 3.7 Urine Color Urine Clarity Urine pH Ur Specific [place] Urine Protein Urine Glucose (UA) Urine Ketones Urine Blood Urine Nitrate Urine Bilirubin Urine Urobilinogen Ur Leukocyte Esterase Urine RBC (Auto) Urine Microscopic WBC 12/26/17 12/26/17 12/27/17 20:05 22:50 09:40 WBC 9.4 RBC 4.72 Hgb 13.7 Hct 39.3 MCV 83.4 MCH 29.1 MCHC 34.9 RDW 13.7 Plt Count 320 MPV Neut % (Auto) Lymph % (Auto) [place] % (Auto) Eos % (Auto) Baso % (Auto) Neut # (Auto) Lymph # (Auto) [place] # (Auto) Eos # (Auto) Baso # (Auto) PT 12.8 INR 1.2 APTT 30.6 pO2 VBG pH VBG pCO2 VBG HCO3 VBG Total CO2 VBG O2 Sat (Calc) VBG Base Excess VBG Potassium Sodium Chloride Glucose Lactate FiO2 Potassium Carbon Dioxide Anion Gap BUN Creatinine Est GFR ( Amer) Est GFR (Non-Af Amer) Random Glucose Calcium Total Bilirubin AST ALT Alkaline Phosphatase Total Protein Albumin Globulin Albumin/Globulin Ratio Venous Blood Potassium Urine Color Yellow Urine Clarity Clear Urine pH 6.0 Ur Specific [place] 1.025 Urine Protein Negative Urine Glucose (UA) Neg Urine Ketones Negative Urine Blood Negative Urine Nitrate Negative Urine Bilirubin Negative Urine Urobilinogen 2.0 Ur Leukocyte Esterase Neg Urine RBC (Auto) 3 Urine Microscopic WBC < 1 Assessment & Plan (1) Cellulitis and abscess of left leg Status: Acute - Assessment and Plan (Free Text) Assessment: severe cellulitis left leg s/p left TKR no clearcut evidence of prosthetic infection recc: consider imaging and if any drianable focus consider drainage CONT empiric IV antibiotics May need 3 weeks rx
--- NOTE | 2017-12-27 12:20 | CP.PCM.PN ---
Subjective - Date & Time of Evaluation Date of Evaluation: 12/27/17 Time of Evaluation: 11:10 - Subjective Subjective: Stable. Afebrile, No acute distress, No acute events overnight. C/O L/LE pain and swelling. Seen by ID already and abx modified. Denies CP, SOB, palpitations , abd pain. Objective - Vital Signs/Intake and Output Vital Signs (last 24 hours): Temp Pulse Resp BP Pulse Ox 98.2 F 76 19 112/67 96 12/27/17 07:47 12/27/17 07:47 12/27/17 07:47 12/27/17 07:47 12/27/17 07:47 - Medications Medications: Current Medications Enoxaparin Sodium (Lovenox) 40 mg SC HS [facility] PRN Reason: Protocol Vancomycin HCl 1 gm/ Sodium (Chloride) 250 mls @ 166.667 mls/hr IVPB Q12 [facility] PRN Reason: Protocol Last Admin: 12/27/17 08:49 Dose: 166.667 mls/hr Piperacillin Sod/Tazobactam (Sod 3.375 gm/ Sodium Chloride) 100 mls @ 100 mls/ hr IVPB Q8 [facility] PRN Reason: Protocol Last Admin: 12/27/17 08:54 Dose: 100 mls/hr Ibuprofen (Motrin Tab) 800 mg PO Q8 [facility] Last Admin: 12/27/17 08:45 Dose: 800 mg Morphine Sulfate (Morphine) 2 mg IVP Q6 PRN PRN Reason: Pain, severe (8-10) Pantoprazole Sodium (Protonix Inj) 40 mg IVP DAILY [facility] Last Admin: 12/27/17 08:46 Dose: 40 mg - Labs Labs: 12/27/17 09:40 12/26/17 20:05 PT 12.8 Seconds (9.8-13.1) 12/26/17 20:05 INR 1.2 (0.9-1.2) 12/26/17 20:05 APTT 30.6 Seconds (25.6-37.1) 12/26/17 20:05 - Constitutional Appears: Non-toxic - Eye Exam Eye Exam: PERRL - ENT Exam ENT Exam: Mucous Membranes Moist - Respiratory Exam Respiratory Exam: Clear to Ausculation Bilateral, NORMAL BREATHING PATTERN. absent: Chest Wall Tenderness, Decreased Breath Sounds, Rales, Rhonchi, Wheezes , Respiratory Distress - Cardiovascular Exam Cardiovascular Exam: REGULAR RHYTHM, +S1, +S2. absent: Gallop, Murmur - GI/Abdominal Exam GI & Abdominal Exam: Soft, Normal Bowel Sounds. absent: Bruit, Distended, Firm , Tenderness, Pulsatile Mass, Rebound - Extremities Exam Extremities Exam: Pedal Edema, Tenderness. absent: Calf Tenderness Additional comments: Erythematous, edema, tenderness over surgical area. NO signs of neurvascular compromise - Neurological Exam Neurological Exam: Alert, Awake, Oriented x3 - Psychiatric Exam Psychiatric exam: Normal Affect, Normal Mood - Skin Skin Exam: Warm Assessment and Plan - Assessment and Plan (Free Text) Assessment: Poss LE cellulitis R/o DVT. Will order LE US ID consult appreciated: C/W Consuelosyn and Violeta Orthopedic consulted c/w pain control, supportive measures and PT Start Lovenox for DVt prophylaxis
--- NOTE | 2017-12-27 21:22 | CARD ---
APPROVED REPORT EKG Measurement Heart [id number] ME [id number] <Conclusion> Sinus rhythm with marked sinus arrhythmia Otherwise normal ECG
[2017-12-27] MEDS: Enoxaparin 40 mg Syringe SC SCH (21:43)
[2017-12-27] MEDS ORDERED: Morphine 4 MG/ML VIAL IVP PRN (22:15)
[2017-12-28] MEDS: Piperacillin/Tazobact 3.375 GM in Sodium Chloride 0.9% 100 ML IVPB SCH ×3 (00:08→17:09)
[2017-12-28 06:24] LABS: BASO # 0.1 K/uL (0.0-0.2); BASO % 0.5 % (0.0-2.0); EOS # 0.4 K/uL (0.0-0.7); EOS % 3.9 % (0.0-4.0); HEMOGLOBIN 12.7 g/dL (12.0-18.0); LYMPH # 2.5 K/uL (1.0-4.3); LYMPH % 23.7 % (20.0-40.0); MEAN CELL VOLUME 83.2 fl (80.0-94.0); MEAN CORPUSCULAR HEMOGLOBIN 29.2 pg (27.0-31.0); MEAN CORPUSCULAR HGB CONC 35.1 g/dL (33.0-37.0); MEAN PLATELET VOLUME 8.7 fl (7.2-11.7); MONO # 0.7 K/uL (0.0-0.8); MONO % 6.7 % (0.0-10.0); NEUT # 6.9 K/uL (1.8-7.0); NEUT % 65.2 % (50.0-75.0); NRBC % 0.1 % (0.0-0.0); RBC 4.36 Mil/uL (4.40-5.90); RED CELL DISTRIBUTION WIDTH 13.9 % (11.5-14.5); WHITE BLOOD COUNT 10.5 K/uL (4.8-10.8)
[2017-12-28 06:32] LABS: ALBUMIN 3.2 g/dL (3.5-5.0); ALT/SGPT 36 U/L (21-72); AST/SGOT 23 U/L (17-59); BLOOD UREA NITROGEN 23 mg/dl (9-20); CALCIUM 8.9 mg/dL (8.4-10.2); GFR AFRICAN-AMERICAN > 60; GFR NON-AFRICAN AMERICAN > 60
--- NOTE | 2017-12-28 08:32 | CP.PCM.PN ---
Subjective - Date & Time of Evaluation Date of Evaluation: 12/28/17 Time of Evaluation: 08:30 - Subjective Subjective: Orthopedic note Dr. Stubbs, seen and examined with Dr. Stubbs Patient states he is feeling better. Says he can tolerate more flexion to CPM. Denies CP/SOB/dizziness. No new complaints Objective - Vital Signs/Intake and Output Vital Signs (last 24 hours): Temp Pulse Resp BP Pulse Ox 98.7 F 76 20 132/88 96 12/28/17 00:29 12/28/17 00:29 12/28/17 00:29 12/28/17 00:29 12/28/17 00:29 - Medications Medications: Current Medications Enoxaparin Sodium (Lovenox) 40 mg SC HS [facility] PRN Reason: Protocol Last Admin: 12/27/17 21:43 Dose: 40 mg Vancomycin HCl 1 gm/ Sodium (Chloride) 250 mls @ 166.667 mls/hr IVPB Q12 [facility] PRN Reason: Protocol Last Admin: 12/27/17 20:38 Dose: 166.667 mls/hr Piperacillin Sod/Tazobactam (Sod 3.375 gm/ Sodium Chloride) 100 mls @ 100 mls/ hr IVPB Q8 [facility] PRN Reason: Protocol Last Admin: 12/28/17 00:08 Dose: 100 mls/hr Ibuprofen (Motrin Tab) 800 mg PO Q8 [facility] Last Admin: 12/28/17 00:08 Dose: 800 mg Morphine Sulfate (Morphine) 2 mg IVP Q6 PRN PRN Reason: Pain, severe (8-10) Last Admin: 12/27/17 22:09 Dose: 2 mg Pantoprazole Sodium (Protonix Inj) 40 mg IVP DAILY [facility] Last Admin: 12/27/17 08:46 Dose: 40 mg - Labs Labs: 12/28/17 05:50 12/28/17 05:50 PT 12.8 Seconds (9.8-13.1) 12/26/17 20:05 INR 1.2 (0.9-1.2) 12/26/17 20:05 APTT 30.6 Seconds (25.6-37.1) 12/26/17 20:05 - Extremities Exam Additional comments: Left knee: noted erythema demarcated by adhesive dressing, with continued swelling to LLE with redness. Knee ROM approx 80 degrees actively. +DP/PT pulses , calves soft NT neg homans, incision intact, dry, no incisional erythema. Assessment and Plan (1) S/P TKR (total knee replacement) Assessment & Plan: s/p L knee TKR 12/13/2017 LLE cellulitis vs allergic reaction to adhesive WBC downtrending, afeb throughout admission ID note appreciated per Dr. Stubbs if continues to improve plan d/c home CPM/PT/OT VTE proph, encourage OOB d/w Dr. Stubbs, agrees with above Status: Acute
--- NOTE | 2017-12-28 10:38 | US ---
HISTORY: R/O DVT . PRIORS: None. FINDINGS: 2-D, color and duplex Doppler analysis of the left lower extremity venous circulation using routine protocol from the femoral veins through the popliteal veins. Venous compressibility: Normal. Flow and augmentation patterns: Normal. Visualized veins upper third of calf: Normal. Mantilla cyst: None. IMPRESSION: No sonographic or Doppler evidence for DVT in left lower extremity. Preliminary interpretation of this examination was reported by [facility] at 7:44 p.m. on 12/27/2017. There is concurrence of this report with the preliminary interpretation.
--- NOTE | 2017-12-28 12:15 | CP.PCM.PN ---
Subjective - Date & Time of Evaluation Date of Evaluation: 12/28/17 Time of Evaluation: 10:45 - Subjective Subjective: Stable. Doing well. Denies CP, SOB, palpitations, changes in urination or stools. Tolerating PO. Afebrile. C/o mild pain L/LE. Objective - Vital Signs/Intake and Output Vital Signs (last 24 hours): Temp Pulse Resp BP Pulse Ox 98.2 F 82 20 130/83 96 12/28/17 08:34 12/28/17 08:34 12/28/17 08:34 12/28/17 08:34 12/28/17 08:34 - Medications Medications: Current Medications Enoxaparin Sodium (Lovenox) 40 mg SC HS [facility] PRN Reason: Protocol Last Admin: 12/27/17 21:43 Dose: 40 mg Vancomycin HCl 1 gm/ Sodium (Chloride) 250 mls @ 166.667 mls/hr IVPB Q12 [facility] PRN Reason: Protocol Last Admin: 12/28/17 11:42 Dose: 166.667 mls/hr Piperacillin Sod/Tazobactam (Sod 3.375 gm/ Sodium Chloride) 100 mls @ 100 mls/ hr IVPB Q8 [facility] PRN Reason: Protocol Last Admin: 12/28/17 09:55 Dose: 100 mls/hr Ibuprofen (Motrin Tab) 800 mg PO Q8 [facility] Last Admin: 12/28/17 09:51 Dose: 800 mg Morphine Sulfate (Morphine) 2 mg IVP Q6 PRN PRN Reason: Pain, severe (8-10) Last Admin: 12/27/17 22:09 Dose: 2 mg Pantoprazole Sodium (Protonix Inj) 40 mg IVP DAILY [facility] Last Admin: 12/28/17 09:53 Dose: 40 mg - Labs Labs: 12/28/17 05:50 12/28/17 05:50 PT 12.8 Seconds (9.8-13.1) 12/26/17 20:05 INR 1.2 (0.9-1.2) 12/26/17 20:05 APTT 30.6 Seconds (25.6-37.1) 12/26/17 20:05 - Constitutional Appears: Non-toxic, No Acute Distress - Eye Exam Eye Exam: EOMI, PERRL - ENT Exam ENT Exam: Mucous Membranes Moist - Respiratory Exam Respiratory Exam: Clear to Ausculation Bilateral, NORMAL BREATHING PATTERN. absent: Decreased Breath Sounds, Rales, Rhonchi, Wheezes, Respiratory Distress - Cardiovascular Exam Cardiovascular Exam: REGULAR RHYTHM, +S1, +S2. absent: Gallop, Murmur - GI/Abdominal Exam GI & Abdominal Exam: Soft, Normal Bowel Sounds. absent: Bruit, Distended, Firm , Guarding, Rigid, Tenderness, Rebound - Extremities Exam Extremities Exam: Pedal Edema (L/LE), Tenderness (L/LE. L/knee). absent: Calf Tenderness, Normal Inspection (erythema improving to L/LE) - Neurological Exam Neurological Exam: Alert, Awake, Oriented x3 - Psychiatric Exam Psychiatric exam: Normal Affect, Normal Mood - Skin Skin Exam: Warm Assessment and Plan - Assessment and Plan (Free Text) Assessment: Left LE Erythema and Edema S/p L/knee replacement US neg for DVT Erythema and swelling poss due to allergic reaction to adhesive/dressing Afebrile, No White count Start medrol pack C/W Abx
--- NOTE | 2017-12-28 16:58 | CP.PCM.PN ---
Subjective - Date & Time of Evaluation Date of Evaluation: 12/28/17 Time of Evaluation: 07:00 - Subjective Subjective: afebrile less pain redness and swelling persist DVT neg all cultures negative Objective - Vital Signs/Intake and Output Vital Signs (last 24 hours): Temp Pulse Resp BP Pulse Ox 98.1 F 75 20 128/82 96 12/28/17 16:15 12/28/17 16:15 12/28/17 16:15 12/28/17 16:15 12/28/17 16:15 - Medications Medications: Current Medications Enoxaparin Sodium (Lovenox) 40 mg SC HS SOPHIE PRN Reason: Protocol Last Admin: 12/27/17 21:43 Dose: 40 mg Vancomycin HCl 1 gm/ Sodium (Chloride) 250 mls @ 166.667 mls/hr IVPB Q12 [facility] PRN Reason: Protocol Last Admin: 12/28/17 11:42 Dose: 166.667 mls/hr Piperacillin Sod/Tazobactam (Sod 3.375 gm/ Sodium Chloride) 100 mls @ 100 mls/ hr IVPB Q8 [facility] PRN Reason: Protocol Last Admin: 12/28/17 09:55 Dose: 100 mls/hr Ibuprofen (Motrin Tab) 800 mg PO Q8 [facility] Last Admin: 12/28/17 09:51 Dose: 800 mg Morphine Sulfate (Morphine) 2 mg IVP Q6 PRN PRN Reason: Pain, severe (8-10) Last Admin: 12/27/17 22:09 Dose: 2 mg Pantoprazole Sodium (Protonix Inj) 40 mg IVP DAILY [facility] Last Admin: 12/28/17 09:53 Dose: 40 mg - Labs Labs: 12/28/17 05:50 12/28/17 05:50 PT 12.8 Seconds (9.8-13.1) 12/26/17 20:05 INR 1.2 (0.9-1.2) 12/26/17 20:05 APTT 30.6 Seconds (25.6-37.1) 12/26/17 20:05 - Constitutional Appears: Non-toxic, Chronically Ill - Head Exam Head Exam: NORMOCEPHALIC - Eye Exam Eye Exam: PERRL. absent: Scleral icterus - ENT Exam ENT Exam: Mucous Membranes Dry - Neck Exam Neck Exam: absent: Lymphadenopathy - Respiratory Exam Respiratory Exam: Decreased Breath Sounds - Cardiovascular Exam Cardiovascular Exam: REGULAR RHYTHM - GI/Abdominal Exam GI & Abdominal Exam: Distended, Soft - Rectal Exam Rectal Exam: Deferred - Exam Exam: NORMAL INSPECTION - Extremities Exam Extremities Exam: Tenderness. absent: Calf Tenderness, Full ROM, Normal Inspection, Pedal Edema Additional comments: redness and swelling left leg ++ no drainage - Back Exam Back Exam: absent: CVA tenderness (L), CVA tenderness (R) - Neurological Exam Neurological Exam: Alert, Awake, Oriented x3 Neuro motor strength exam: Left Upper Extremity: 5, Right Upper Extremity: 5, Left Lower Extremity: 5, Right Lower Extremity: 5 - Psychiatric Exam Psychiatric exam: Normal Mood - Skin Skin Exam: Dry Assessment and Plan (1) Cellulitis and abscess of left leg Status: Acute - Assessment and Plan (Free Text) Assessment: cont iv then po antibiotics Possible PO Zyvox for 7 days
[2017-12-28] MEDS: Enoxaparin 40 mg Syringe SC SCH (21:23)
[2017-12-29] MEDS: Piperacillin/Tazobact 3.375 GM in Sodium Chloride 0.9% 100 ML IVPB SCH ×2 (00:17→08:57)
--- NOTE | 2017-12-29 09:25 | CP.PCM.PN ---
Subjective - Date & Time of Evaluation Date of Evaluation: 12/29/17 Time of Evaluation: 09:23 - Subjective Subjective: Patient states knee continues to improve. Toelrating PT and CPM well. Objective - Vital Signs/Intake and Output Vital Signs (last 24 hours): Temp Pulse Resp BP Pulse Ox 97.9 F 81 19 143/84 96 12/29/17 08:10 12/29/17 08:10 12/29/17 08:10 12/29/17 08:10 12/29/17 08:10 - Medications Medications: Current Medications Enoxaparin Sodium (Lovenox) 40 mg SC HS SOPHIE PRN Reason: Protocol Last Admin: 12/28/17 21:23 Dose: 40 mg Vancomycin HCl 1 gm/ Sodium (Chloride) 250 mls @ 166.667 mls/hr IVPB Q12 [facility] PRN Reason: Protocol Last Admin: 12/29/17 08:57 Dose: 166.667 mls/hr Piperacillin Sod/Tazobactam (Sod 3.375 gm/ Sodium Chloride) 100 mls @ 100 mls/ hr IVPB Q8 [facility] PRN Reason: Protocol Last Admin: 12/29/17 08:57 Dose: 100 mls/hr Ibuprofen (Motrin Tab) 800 mg PO Q8 [facility] Last Admin: 12/29/17 08:56 Dose: 800 mg Morphine Sulfate (Morphine) 2 mg IVP Q6 PRN PRN Reason: Pain, severe (8-10) Last Admin: 12/27/17 22:09 Dose: 2 mg Pantoprazole Sodium (Protonix Inj) 40 mg IVP DAILY [facility] Last Admin: 12/29/17 08:57 Dose: 40 mg - Labs Labs: 12/28/17 05:50 12/28/17 05:50 PT 12.8 Seconds (9.8-13.1) 12/26/17 20:05 INR 1.2 (0.9-1.2) 12/26/17 20:05 APTT 30.6 Seconds (25.6-37.1) 12/26/17 20:05 - Extremities Exam Additional comments: LLE: improving redness, still swollen, but improving. Elevation and AROM encouraged. +DP/PT Pulses calves soft NT neg homans sensation intact, incision dry, intact, healing well. Assessment and Plan (1) S/P TKR (total knee replacement) Assessment & Plan: improving cellulitis vs allergic reaction recommend d/c home on PO antibiotics as per ID f/u Dr. Stubbs approx 1 week call for appointment cont PT/ROM/ambulation as tolerated d/w Dr. Stubbs, agrees with above Status: Acute
[2017-12-29 11:15] VITALS: BP 143/84; PULSE 81; TEMP 97.9
--- NOTE | 2017-12-29 12:17 | CP.PCM.DIS ---
Provider - Provider Date of Admission: 12/26/17 19:15 Attending physician: Melvin Sexton MD Consults: Ortho Time Spent in preparation of Discharge (in minutes): 30 Diagnosis - Discharge Diagnosis (1) Allergic reaction Status: Acute (2) Cellulitis Status: Suspected (3) S/P TKR (total knee replacement) Status: Acute Hospital Course - Lab Results Lab Results: Micro Results 12/26/17 20:00 Blood-Venous Blood Culture - Preliminary NO GROWTH AFTER 48 HOURS 12/26/17 19:45 Blood-Venous Blood Culture - Preliminary NO GROWTH AFTER 48 HOURS 12/26/17 22:50 Urine,Clean Catch Urine Culture - Final No Growth (<1,000 CFU/ML) Most Recent Lab Values WBC 10.5 K/uL (4.8-10.8) 12/28/17 05:50 RBC 4.36 Mil/uL (4.40-5.90) L 12/28/17 05:50 Hgb 12.7 g/dL (12.0-18.0) 12/28/17 05:50 Hct 36.2 % (35.0-51.0) 12/28/17 05:50 MCV 83.2 fl (80.0-94.0) 12/28/17 05:50 MCH 29.2 pg (27.0-31.0) 12/28/17 05:50 MCHC 35.1 g/dL (33.0-37.0) 12/28/17 05:50 RDW 13.9 % (11.5-14.5) 12/28/17 05:50 Plt Count 308 K/uL (130-400) 12/28/17 05:50 MPV 8.7 fl (7.2-11.7) 12/28/17 05:50 Neut % (Auto) 65.2 % (50.0-75.0) 12/28/17 05:50 Lymph % (Auto) 23.7 % (20.0-40.0) 12/28/17 05:50 [place] % (Auto) 6.7 % (0.0-10.0) 12/28/17 05:50 Eos % (Auto) 3.9 % (0.0-4.0) 12/28/17 05:50 Baso % (Auto) 0.5 % (0.0-2.0) 12/28/17 05:50 Neut # (Auto) 6.9 K/uL (1.8-7.0) 12/28/17 05:50 Lymph # (Auto) 2.5 K/uL (1.0-4.3) 12/28/17 05:50 [place] # (Auto) 0.7 K/uL (0.0-0.8) 12/28/17 05:50 Eos # (Auto) 0.4 K/uL (0.0-0.7) 12/28/17 05:50 Baso # (Auto) 0.1 K/uL (0.0-0.2) 12/28/17 05:50 PT 12.8 Seconds (9.8-13.1) 12/26/17 20:05 INR 1.2 (0.9-1.2) 12/26/17 20:05 APTT 30.6 Seconds (25.6-37.1) 12/26/17 20:05 pO2 24 mm/Hg (30-55) L 12/26/17 20:04 VBG pH 7.41 (7.32-7.43) 12/26/17 20:04 VBG pCO2 55 mmHg (40-60) 12/26/17 20:04 VBG HCO3 30.0 mmol/L 12/26/17 20:04 VBG Total CO2 36.6 mmol/L (22-28) H 12/26/17 20:04 VBG O2 Sat (Calc) 48.3 % (40-65) 12/26/17 20:04 VBG Base Excess 8.4 mmol/L (0.0-2.0) H 12/26/17 20:04 VBG Potassium 3.7 mmol/L (3.6-5.2) 12/26/17 20:04 Sodium 139.0 mmol/L (132-148) 12/26/17 20:04 Chloride 105.0 mmol/L (98-107) 12/26/17 20:04 Glucose 117 mg/dL (75-110) H 12/26/17 20:04 Lactate 1.2 mmol/L (0.7-2.1) 12/26/17 20:04 FiO2 21.0 % 12/26/17 20:04 Sodium 144 mmol/l (132-148) 12/28/17 05:50 Potassium 3.9 MMOL/L (3.6-5.0) 12/28/17 05:50 Chloride 105 mmol/L (98-107) 12/28/17 05:50 Carbon Dioxide 29 mmol/L (22-30) 12/28/17 05:50 Anion Gap 14 (10-20) 12/28/17 05:50 BUN 23 mg/dl (9-20) H 12/28/17 05:50 Creatinine 1.0 mg/dl (0.8-1.5) 12/28/17 05:50 Est GFR ( Amer) > 60 12/28/17 05:50 Est GFR (Non-Af Amer) > 60 12/28/17 05:50 Random Glucose 95 mg/dL (75-110) 12/28/17 05:50 Calcium 8.9 mg/dL (8.4-10.2) 12/28/17 05:50 Total Bilirubin 0.6 mg/dl (0.2-1.3) 12/28/17 05:50 AST 23 U/L (17-59) 12/28/17 05:50 ALT 36 U/L (21-72) 12/28/17 05:50 Alkaline Phosphatase 51 U/L (38-126) 12/28/17 05:50 C-React Prot High Sens 7.15 mg/L (1.00-3.00) H 12/28/17 05:50 Total Protein 6.3 G/DL (6.3-8.2) 12/28/17 05:50 Albumin 3.2 g/dL (3.5-5.0) L 12/28/17 05:50 Globulin 3.1 gm/dL (2.2-3.9) 12/28/17 05:50 Albumin/Globulin Ratio 1.0 (1.0-2.1) 12/28/17 05:50 Procalcitonin < 0.05 NG/ML (0.19-0.49) L 12/28/17 05:50 Venous Blood Potassium 3.7 mmol/L (3.6-5.2) 12/26/17 20:04 Urine Color Yellow (YELLOW) 12/26/17 22:50 Urine Clarity Clear (Clear) 12/26/17 22:50 Urine pH 6.0 (5.0-8.0) 12/26/17 22:50 Ur Specific [place] 1.025 (1.003-1.030) 12/26/17 22:50 Urine Protein Negative mg/dL (NEGATIVE) 12/26/17 22:50 Urine Glucose (UA) Neg mg/dL (Normal) 12/26/17 22:50 Urine Ketones Negative mg/dL (NEGATIVE) 12/26/17 22:50 Urine Blood Negative (NEGATIVE) 12/26/17 22:50 Urine Nitrate Negative (NEGATIVE) 12/26/17 22:50 Urine Bilirubin Negative (NEGATIVE) 12/26/17 22:50 Urine Urobilinogen 2.0 mg/dL (0.2-1.0) 12/26/17 22:50 Ur Leukocyte Esterase Neg Shi/uL (Negative) 12/26/17 22:50 Urine RBC (Auto) 3 /hpf (0-3) 12/26/17 22:50 Urine Microscopic WBC < 1 /hpf (0-5) 12/26/17 22:50 Vancomycin Trough 7.8 ug/mL (5.0-10.0) 12/28/17 05:50 - Hospital Course Hospital Course: 52 y/o M s/p L/total knee replacement was admitted to hosp after recently being DC for suspected cellulitis of L/leg. Patient was c/o L/lower leg pain since DC after Sx and noticed and redness surrouding the wound when he decided to come to ED. Patient was admitted and treated with IV abx, Ortho revaluated patient while in hosp. US LE neg for DVT. Patient is cleared for DC home today and f/u as outpatient with the diagnosis of allergic reaction poss to adhesive and suspected cellulitis. Afebrile no White count, VS WNL Discharge Exam - Head Exam Head Exam: NORMOCEPHALIC - Eye Exam Eye Exam: EOMI, PERRL - ENT Exam ENT Exam: Mucous Membranes Moist - Respiratory Exam Respiratory Exam: Clear to PA & Lateral, NORMAL BREATHING PATTERN, UNREMARKABLE - GI/Abdominal Exam GI & Abdominal Exam: Normal Bowel Sounds, Soft, Unremarkable. absent: Distended , Guarding, Hernia, Rebound, Rigid, Tenderness - Extremities Exam Extremities exam: normal capillary refill, pedal edema (L/leg. ), tenderness ( Surounding sx wound, mild), pedal pulses present - Neurological Exam Neurological exam: Alert, Oriented x3 - Skin Skin Exam: Rash (L/lower leg), Warm Discharge Plan - Discharge Medications Prescriptions: Amoxicillin/Clavulanate [Augmentin 875 MG-125 MG] 1 tab PO Q12 #14 tab Methylprednisolone [Medrol Dose Pack (21 tabs)] 4 mg PO UPON ADM #21 mg - Follow Up Plan Condition: STABLE Disposition: HOME/ ROUTINE Patient education suggested?: Yes Instructions: Cellulitis (Skin Infection), Adult (DC) Additional Instructions: follow up with Dr. Stubbs in 1 week, call for appointment. Referrals: Sheri Stubbs MD [Family Provider] - Melvin Sexton MD [Staff Provider] -
[2017-12-29 12:31] VITALS: RESP 19
[2018-01-01 02:38] VITALS: O2SAT 99
== END 2017-12-29 13:36 | disposition home or self-care (01) | DRG 920 ==
LOC: H.ER 16:33 → H.ERHOLD 19:15 → H.MEDSURG1 22:47
PROVIDERS: ADMIT Family Medicine; ATTEND Family Medicine
DX: L76.82 Other postprocedural complications of skin and subcutaneous tissue (principal); L03.116 Cellulitis of left lower limb; Y83.8 Other surgical procedures as the cause of abnormal reaction of the patient, or of later complication, without mention of misadventure at the time of the procedure; Y79.2 Prosthetic and other implants, materials and accessory orthopedic devices associated with adverse incidents; L23.1 Allergic contact dermatitis due to adhesives; M17.0 Bilateral primary osteoarthritis of knee; Z96.652 Presence of left artificial knee joint; K29.70 Gastritis, unspecified, without bleeding; Z96.612 Presence of left artificial shoulder joint

== ENCOUNTER 2018-01-03 06:17 | Emergency (ER) | payer OTHER ==
[2018-01-03 06:29] VITALS: BMI 33.2
[2018-01-03 06:34] VITALS: TEMP 98
[2018-01-03 07:31] LABS: BASO # 0.1 K/uL (0.0-0.2); EOS # 0.3 K/uL (0.0-0.7); EOS % 3.3 % (0.0-4.0); HEMOGLOBIN 14.8 g/dL (12.0-18.0); LYMPH # 2.1 K/uL (1.0-4.3); LYMPH % 26.1 % (20.0-40.0); MEAN CELL VOLUME 82.9 fl (80.0-94.0); MEAN CORPUSCULAR HEMOGLOBIN 28.9 pg (27.0-31.0); MEAN CORPUSCULAR HGB CONC 34.9 g/dL (33.0-37.0); MEAN PLATELET VOLUME 9.3 fl (7.2-11.7); MONO # 0.7 K/uL (0.0-0.8); MONO % 8.3 % (0.0-10.0); NEUT # 5.1 K/uL (1.8-7.0); NEUT % 61.3 % (50.0-75.0); RBC 5.12 Mil/uL (4.40-5.90); WHITE BLOOD COUNT 8.2 K/uL (4.8-10.8)
[2018-01-03 07:45] LABS: INR 1.1 (0.9-1.2); PARTIAL THROMBOPLASTIN TIME 32.4 Seconds (25.6-37.1); PROTHROMBIN TIME 11.8 Seconds (9.8-13.1)
[2018-01-03 07:54] LABS: ALB/GLOB RATIO 1.2 (1.0-2.1); ALBUMIN 4.1 g/dL (3.5-5.0); ALT/SGPT 52 U/L (21-72); AST/SGOT 32 U/L (17-59); BLOOD UREA NITROGEN 24 mg/dl (9-20); CALCIUM 9.4 mg/dL (8.4-10.2); GFR AFRICAN-AMERICAN > 60; GFR NON-AFRICAN AMERICAN > 60
[2018-01-03] MEDS ORDERED: Lidocaine Hydrochloride 1% 10 ML ONE (08:19)
[2018-01-03] MEDS ORDERED: Povidone Iodine Oint 10% Foilpak UD ONE (08:19)
[2018-01-03] MEDS ORDERED: Lidocaine 1% Inj (20ml) IJ ONE (08:19)
--- NOTE | 2018-01-03 08:55 | ED PDOC ---
Lower Extremity Pain/Injury Time Seen by Provider: 01/03/18 06:59 Chief Complaint (Nursing): Lower Extremity Problem/Injury History Per: Patient History/Exam Limitations: no limitations Onset/Duration Of Symptoms: Days (7), Gradual Severity: Mild Additional History Per: Patient Additional Complaint(s): Patient was seen in the ER last week for left knee swelling and started on antibiotics. Over the weekend the swelling and pain have increased and he started leaking fluid. Patient denies fever. Has been ambulating with a limp. Denies recent injury. Past Medical History Reviewed: Historical Data, Nursing Documentation, Vital Signs Vital Signs: Last Vital Signs Temp 98.0 F 01/03/18 06:30 Pulse 85 01/03/18 06:30 Resp 16 01/03/18 06:30 BP 135/88 01/03/18 06:30 Pulse Ox 96 01/03/18 06:30 - Medical History PMH: Arthritis (knees), Gastritis Denies: Chronic Kidney Disease - Surgical History Surgical History: Endoscopy - Family History Family History: States: Unknown Family Hx - Living Arrangements Living Arrangements: With Family - Social History Current smoker - smoking cessation education provided: No - Home Medications Home Medications: Ambulatory Orders Medication Instructions Recorded Amoxicillin/Clavulanate [Augmentin 1 tab PO Q12 #14 tab 12/29/17 875 MG-125 MG] Methylprednisolone [Medrol Dose 4 mg PO UPON ADM #21 mg 12/29/17 Pack (21 tabs)] - Allergies Allergies/Adverse Reactions: Allergies Allergy/AdvReac Type Severity Reaction Status Date / Time No Known Allergies Allergy Verified 01/03/18 06:29 Review of Systems ROS Statement: Except As Marked, All Systems Reviewed And Found Negative Constitutional: Negative for: Fever, Chills Cardiovascular: Negative for: Chest Pain, Palpitations Respiratory: Negative for: Cough, Shortness of Breath Gastrointestinal: Negative for: Nausea Musculoskeletal: Positive for: Leg Pain (left) Neurological: Negative for: Weakness, Numbness Physical Exam - Reviewed Nursing Documentation Reviewed: Yes Vital Signs Reviewed: Yes - Physical Exam Appears: Positive for: Uncomfortable Head Exam: Positive for: ATRAUMATIC, NORMAL INSPECTION, NORMOCEPHALIC Eye Exam: Positive for: Normal appearance, EOMI, PERRL Neck: Positive for: Normal, Painless ROM, Supple Cardiovascular/Chest: Positive for: Regular Rate, Rhythm, Chest Non Tender Respiratory: Positive for: Normal Breath Sounds. Negative for: Decreased Breath Sounds, Accessory Muscle Use, Crackles, Rales, Rhonchi, Stridor, Wheezing Gastrointestinal/Abdominal: Positive for: Normal Exam, Bowel Sounds, Soft. Negative for: Tenderness Back: Positive for: Normal Inspection. Negative for: L CVA Tenderness, R CVA Tenderness Extremity: Positive for: Normal ROM, Tenderness, Swelling (left leg diffuse swelling foot nvi, full rom healed verticle scar present, mod erythema of left knee other all nml). Negative for: Pedal Edema Neurologic/Psych: Positive for: Alert, electrocardiographic technician II-XII, Oriented. Negative for: Motor/Sensory Deficits - Laboratory Results Result Diagrams: 01/03/18 07:20 01/03/18 07:20 - ECG O2 Sat by Pulse Oximetry: 96 Pulse Ox Interpretation: Normal - Progress ED Course And Treament: pt seen by Dr horn in the ed and a arthrocentesis performed by him will contact with results. 1300 pt seen and eval by Dr horn, who d/c the pt from the ed/ pt will f/uj as instructed all of pt's questions were answered and pt agree's with plan. leaves ambulatory and in good spirits. Re-evaluation Time: 08:56 Condition: Improved Disposition - Clinical Impression Clinical Impression: Acute knee pain - Patient ED Disposition Is Patient to be Admitted: No Counseled Patient/Family Regarding: Studies Performed, Diagnosis, Need For Followup - Disposition Referrals: Sheri Mendoza MD [Primary Care Provider] - Sheri Horn MD [Staff Provider] - Disposition: Routine/Home Disposition Time: 13:00 Condition: GOOD Instructions: Chronic Knee Pain (DC) Forms: [employer] (Telugu)
[2018-01-03 09:20] LABS: FLUID TYPE SYNOVIAL FLUID
[2018-01-03 10:24] LABS: SF GROSS APPEARANCE CLOUDY (CLEAR); SYNOVIAL FLUID COMMENT MODERATELY BLOODY
[2018-01-03 10:49] LABS: SYNOVIAL FLUID MONO/MACROPHAGE 17 % (0-0)
--- NOTE | 2018-01-03 10:55 | US ---
HISTORY: left leg pain . PRIORS: 12/27/2017. FINDINGS: 2-D, color and duplex Doppler analysis of the lower extremity venous circulation using routine protocol from the femoral veins through the popliteal veins. Venous compressibility: Normal. Flow and augmentation patterns: Normal. Visualized veins upper third of calf: Normal. [place] cyst: None. IMPRESSION: No sonographic or Doppler evidence for DVT in left lower extremity.
--- NOTE | 2018-01-03 11:37 | CARD ---
APPROVED REPORT EKG Measurement Heart [id number] <Conclusion> Normal sinus rhythm Normal ECG
[2018-01-03 15:18] VITALS: BP 130/86; PULSE 82; RESP 18; O2SAT 97
== END 2018-01-03 14:10 | disposition home or self-care (01) ==
LOC: H.ER 06:17
DX: M25.562 Pain in left knee (principal)